=== PATIENT | female | born 1945 | race Caucasian/White ===

== ENCOUNTER 2017-07-05 05:46 | Day surgery (SDC) | payer MEDICARE ==
[2017-07-05] MEDS: IV RINGERS,LACTATED 1000ML 1,000 ML IV ×2 (06:38→12:04)
[2017-07-05 06:41] LABS: POC GLUCOSE 110 mg/dL (70-99)
[2017-07-05] MEDS ORDERED: LIDOCAINE 1% PF 2 ML VIAL. ID (07:00)
[2017-07-05] MEDS ORDERED: ONDANSETRON PF 4 MG/2 ML VIAL. IV (07:00)
[2017-07-05] MEDS ORDERED: PROCHLORPERAZINE 10 MG/2 ML VIAL. IV (07:00)
[2017-07-05] MEDS ORDERED: MORPHINE SULFATE 4 MG/ML DISP.SYRIN. IV (07:00)
[2017-07-05] MEDS ORDERED: fentaNYL PF VIAL 100 MCG/2 ML VIAL IV (07:00)
[2017-07-05] MEDS ORDERED: PHENYLEPHRINE 10 MG/ML VIAL. (07:57)
[2017-07-05] MEDS ORDERED: REMIFENTANIL 2 MG VIAL. IV (07:57)
[2017-07-05] MEDS ORDERED: LIDOCAINE 2% PF Vial for OR 5 ML VIAL. (07:57)
[2017-07-05] MEDS ORDERED: PROPOFOL 50 ML IV ×2 (07:57→10:34)
[2017-07-05] MEDS ORDERED: ONDANSETRON PF 4 MG/2 ML VIAL. (07:57)
[2017-07-05] MEDS ORDERED: DEXAMETHASONE SOD PHOS 20 MG/5 ML VIAL. (07:57)
[2017-07-05] MEDS ORDERED: PROPOFOL 20 ML IV (07:57)
[2017-07-05] MEDS ORDERED: MINERAL OIL/PETROLATUM,WHITE OPHTH OINT 3.5GM TUBE. (07:58)
[2017-07-05] MEDS ORDERED: ROCURONIUM 50 MG/5 ML VIAL. (07:58)
[2017-07-05] MEDS ORDERED: DESFLURANE > 120 MINUTES IH (08:17)
[2017-07-05] MEDS ORDERED: GLYCOPYRROLATE 1 MG/5 ML VIAL. (09:23)
[2017-07-05] MEDS ORDERED: ePHEDrine PF IN SALINE 50 MG/5 ML DISP.SYRIN IV (09:25)
[2017-07-05] MEDS: GELATIN SPONGE SIZE 100. (09:40)
[2017-07-05] MEDS: BUPIVAC MPF-EPI 0.5%-1:200000 30 ML VIAL. INJ (09:40)
[2017-07-05] MEDS: BACITRACIN 50,000 UNIT in IV NORMAL SALINE 1000ML BAG 1,000 ML IRR (09:40)
[2017-07-05] MEDS: KETOROLAC 60 MG/2 ML INJ FOR OR. (09:40)
[2017-07-05] MEDS: THROMBIN TOPICAL 20,000 UNIT SPRAY.SYRN KIT TP (09:40)
[2017-07-05] MEDS ORDERED: LABETALOL 20 MG/4 ML DISP.SYRIN. (10:34)
[2017-07-05] MEDS ORDERED: ESMOLOL 100 MG/10 ML VIAL. IV (10:34)
[2017-07-05] MEDS: fentaNYL PF VIAL 100 MCG/2 ML VIAL IV (12:20)
[2017-07-05] MEDS: HYDROcodone/APAP 5/325MG 1 TAB TABLET PO (12:21)
== END 2017-07-05 13:47 | disposition home or self-care (01) ==
LOC: SURG 05:46
DX: M51.16 Intervertebral disc disorders with radiculopathy, lumbar region (principal); I10 Essential (primary) hypertension; E11.9 Type 2 diabetes mellitus without complications; Z90.710 Acquired absence of both cervix and uterus; Z98.890 Other specified postprocedural states; Z86.73 Personal history of transient ischemic attack (TIA), and cerebral infarction without residual deficits; Z79.4 Long term (current) use of insulin; Z79.899 Other long term (current) drug therapy
CPT/HCPCS: 63030; 72131; 76000; 82962; 97162-GP; 97530-GP; A7015; G8978-CI-GP; G8979-CI-GP; G8980-CI-GP; J0690; J1100; J1885; J2405; J2704; J3010; J3490; J7030; J7120

== ENCOUNTER → 2017-12-17 | Outpatient (CLI) | payer MEDICARE ==
[2017-07-05 12:35] VITALS: BP 140/108
[~2017-12-17] MED LIST: ASPI-630 PO; CHOL100013 PO; CRESTOR10 MG PO; CRESTOR20 MG PO; GADOBUTROL 7.5 MMOL/7.5 ML VIAL IV ONE; HYDR-971 PO; IBUP-1007 PO; LISI-334 PO; LISI10TA2 PO; METF500T16 PO; SERT50TA PO; ZOLP10TA PO
--- NOTE | 2017-12-17 11:29 | KCIC ---
Two-view lumbar spine dated 12/17/2017. Comparison made to MRI dated 12/17/2017. CLINICAL INDICATION: Right-sided radiculopathy post surgery. Findings flexion extension lateral views were obtained. There is very slight anterolisthesis of L4 on L5 that is stable on flexion-extension views. Sagittal alignment is otherwise anatomic. Vertebral body heights are maintained. Mild endplate hypertrophic changes throughout. Mild to moderate arthrosis lower lumbar apophyseal joints. IMPRESSION: 1. Slight anterolisthesis of L4 on L5 with no evidence of instability on the flexion extension views. 2. Mild to moderate lower lumbar spondylosis. Electronically signed by: Curt Saldivar MD (12/17/2017 11:26 AM) [email or web address]
--- NOTE | 2017-12-17 12:27 | KCIC ---
MRI Lumbar Spine without and with contrast History: Post discectomy June 2017, right radiculopathy Technique: Multiplanar, multi sequential pre and postcontrast MR imaging was performed of the lumbar spine. Contrast: 7 cc Gadavist Comparison: July 05, 2017 CT exam, no previous MRI exam available Findings: There is again grade 1 anterior spondylolisthesis L4-5. Lumbar vertebral body stature is maintained. There is mild to moderate degenerative disc disease at L5-S1 and L4-5 as seen previously, mild disc desiccation at more superior levels. Conus terminates at L1. There is no significant marrow edema. There is no nodular enhancement of the conus or cauda equina. T12-L1: This level was not included on the axial images. There is negligible posterior protrusion without spinal stenosis. L1-L2: Spinal canal and neural foramina are adequate. L2-L3: There is likely hemangioma of the right lateral L2 vertebral body. Spinal canal and neural foramina are adequate. L3-L4: There is negligible disc osteophyte complex. Spinal canal and neural foramina are adequate. L4-L5: There is severe right facet degenerative change, to lesser degree on the left. There is mild to moderate buckling of the ligamentum flavum. There is mild partial uncovering of the posterior aspect of the disc due to spondylolisthesis with minimal superimposed shallow protrusion in the right lateral recess. There is also extrusion extending above the intervertebral disc space in the distal aspect of the right neural foramen extending to the proximal extraforaminal region which measures about 0.9 cm AP by 0.9 cm cc by 1.1 cm transverse. There is severe narrowing of the distal right neural foramen with contact of the exiting right L4 nerve root extending to the proximal extraforaminal region. There is mild narrowing of the left neural foramen. There is very minimal narrowing of the far right lateral recess. L5-S1: There is mild to moderate facet degenerative change. There is negligible disc osteophyte complex. Spinal canal is adequate. There is [id number] narrowing of the left neural foramen and moderate narrowing of the right neural foramen, contact of the exiting L5 nerve roots somewhat greater on the left. Impression: 1. There is severe narrowing of the right L4-5 neural foramen greater distally with contact exiting right L4 nerve root in the distal neural foramen and proximal extraforaminal region by extrusion extending above the intervertebral disc space. There is no significant lumbar spinal stenosis. 2. There is grade 1 anterior spondylolisthesis at L4-5 at which there is facet degenerative change. 3. There is [id number] degenerative disc disease at L4-5 and L5-S1. Electronically signed by: Chente Motta MD (12/17/2017 12:24 PM) [email or web address]
== END | disposition home or self-care (01) ==
LOC: KCIC MRI 09:41
PROVIDERS: ATTEND Neurological Surgery
DX: M43.16 Spondylolisthesis, lumbar region (principal); M47.896 Other spondylosis, lumbar region; M51.37 Other intervertebral disc degeneration, lumbosacral region; M51.36 Other intervertebral disc degeneration, lumbar region; M48.061 Spinal stenosis, lumbar region without neurogenic claudication; I10 Essential (primary) hypertension; E11.9 Type 2 diabetes mellitus without complications
CPT/HCPCS: 72100; 72158; 82565; A9585

== ENCOUNTER → 2018-01-11 | Outpatient (CLI) | payer MEDICARE ==
[2017-07-05 12:35] VITALS: BP 140/108
[~2018-01-11] MED LIST changes: +BUPIVACAINE MPF 0.25% 10 ML VIAL. ONE; -GADOBUTROL 7.5 MMOL/7.5 ML VIAL IV ONE; +IOHEXOL 180 MG/ML 10 ML VIAL. ONE; +methylPREDNISolone ACETATE 80 MG/ML VIAL. ONE
--- NOTE | 2018-01-11 23:31 | PAIN ---
DATE OF SERVICE: 01/11/2018 INITIAL CONSULTATION FOR PAIN CLINIC CHIEF COMPLAINT: Low back and right lower extremity pain. HISTORY OF PRESENT ILLNESS: This is a 72-year-old female who presents with history of pain in the low back, right lower extremity since November 21, she stepped off of off of a curb and felt on in her back and her leg. The patient had undergone lumbar decompressive laminectomy in June of this year with very good results. The patient reports she is completely pain free until November 21 when she stepped off a curb on her right foot and had pain immediately in the back and the lower extremities that has become worse on the right side since that time; worse with standing, walking, changing positions, now the pain is radiating across the low back into the posterior gluteus, posterior thigh, posterior calf, posterior heel and into the lateral aspect of the right foot and into the great toe with some burning and tingling. The patient reports it is also radiating, shooting, becoming more constant, burning and cramping, worse at night, worse with walking, awakens her from sleep several times at night. It does affect her ability to walk fairly significantly. The patient reports it also affects her bowel and bladder control with some increased frequency, but not with any incontinence noted. The patient reports it is much worse with standing, weightbearing and change positions from sitting to standing as it is difficult as well. The patient has had physical therapies in the past as well as chiropractic treatments, nothing recently and done well with the physical therapy. She is still doing some stretching and strengthening exercises daily and trying to walk daily, but it is becoming more difficult for her to do this comfortably. The patient takes Tylenol, which she took last night, which does help to decrease the pain by about 20%. The patient did have a recent MRI on 12/17/2017 showing severe right facet degenerative change at L4-L5 with extrusion extending above the intervertebral disk space in the distal aspect of the right neural foramen, extending to the proximal extraforaminal region with severe narrowing of the distal, right neural foramen and contacting the exiting right L4 nerve root, extending to the proximal extraforaminal region. The patient reports a disability rate from 0-10, 10 being the worst and is 8 with family home responsibilities, 10 with recreation and occupation, 6 with social activity, 0 with self care and 0 with life support activities. The patient reports no complete loss of motor function, but significant fatigability with walking and standing with the right lower extremity and again no symptoms on the left. PAST MEDICAL HISTORY: Significant for arthritis, hypertension, type 2 diabetes and osteopenia. PAST SURGICAL HISTORY: Previous surgeries include lumbar decompressive surgery in June of this year and previous hysterectomy. CURRENT MEDICATIONS: Include ibuprofen, Ambien, vitamin D, metformin, daily baby aspirin, lisinopril and Crestor. ALLERGIES: The patient has no known drug allergies. FAMILY HISTORY: Significant for no major medical problems or conditions that she lists. SOCIAL HISTORY: The patient does not smoke, does not drink alcohol recently relocated from [place], [place] to be with her family and now is in [place], [place]. Reports she is retired, stays very active. Does not use any illegal, illicit or recreational drugs. REVIEW OF SYSTEMS: The patient's review of systems is positive for those items mentioned in history of present illness. All systems reviewed and otherwise negative. It is complete, full and well documented on the patient's chart. PHYSICAL EXAMINATION: VITAL SIGNS: The patient's blood pressure is 157/84, pulse 83, respirations are 18 and temperature 98.2 degrees Fahrenheit. Height is 5 feet 3 inches and weight is 169 pounds. GENERAL: The patient is awake, alert, oriented, appropriate and very pleasant demeanor. HEENT: Head shows normocephalic and atraumatic. Extraocular movements are intact and symmetrical. Oral cavity: Mucous membranes are moist and pink. Dentition is intact. NECK: Shows anterior throat supple without palpable lymphadenopathy noted. Swallow reflex is symmetrical. CHEST: Shows normal on inspection. Breath sounds clear to auscultation bilaterally. HEART: Shows S1 and S2 clear. No murmurs auscultated. ABDOMEN: Soft, nontender and nondistended. No palpable organomegaly is noted. No rebound or guarding demonstrated. BACK: Shows spine grossly in the midline. Normal appearing thoracic kyphosis and lumbar lordotic curvature. Lumbar paraspinous musculature shows symmetrical on inspection, on palpation shows some moderate tenderness throughout the upper, middle and lower distribution of the paraspinous muscles but only diffusely. Well-healed surgical scars noted to the right of midline. No tenderness over the sacrum or sacroiliac regions. The patient has good rotational motion of the lumbar spine, both laterally as well as extension and flexion without difficulty. EXTREMITIES: The patient's lower extremities show deep tendon reflexes at 1+ in the patellar and tendo-calcaneus tendons are equal. Motor exam is approximately 4 on a scale of 5 with right dorsiflexion and extension, 5/5 on the left. Peripheral pulses are 1+ posterior tibial. No peripheral edema is noted. The patient's straight leg raising noted to be positive on the right about 35 degrees, decreased with knee flexion but not completely relieved. Left side is negative. Gaenslen's and J Luis's maneuvers are negative bilaterally. The patient is able to stand, stand on her toes without significant difficulty or loss of balance, walks with a normal appearing gait for short distances now. The patient does not appear to favor the right lower extremity, not using any assistive device to ambulate. The patient's skin shows warm and dry, good turgor. No edema. No sores, rashes or bruising. IMPRESSION: 1. This is a 72-year-old female with approximate 2-month history of increasing pain, low back and right lower extremity in a radicular fashion. 2. MRI scan of the lumbar spine as noted. 3. Arthritis. 4. Hypertension. 5. Type 2 diabetes. PLAN: Options were discussed with the patient including conservative medical management, physical therapy and interventional techniques. She would like to pursue interventional techniques. We discussed a right L4-L5 transforaminal injection using description as well as anatomical models to describe the procedure. Risks were then discussed including, but not limited to bleeding, infection, possibility of epidural hematoma and subsequent neurological compromise, dural puncture, headaches, spinal cord and/or nerve damage, side effects of steroid medication, potential injection of the vertebral artery at that level and permanent ischemic damage as well as poor results regarding pain control. The patient understands and wished to proceed. The patient will return to the clinic in approximately 2 weeks for followup, was counseled as to return appointment, activity level and side effects to be aware of. DIAGNOSES: Lumbar radiculopathy with lumbar degenerative disk disease and post-lumbar laminectomy syndrome. PROCEDURE: Right L4-L5 transforaminal injection using C-arm fluoroscopic guidance under sterile prep and drape using local anesthetic. MEDICATION INJECTED: A total of 2 mL of 0.25% bupivacaine, 80 mg Depo-Medrol and 1.5 mL of Isovue for contrast. CONDITION AT DISCHARGE: Stable. The patient tolerated the procedure well and had no complications. DORIS VANG MD DR: DAVID/nae JOB#: [id number] / [id number] Jenny Lewis
== END | disposition home or self-care (01) ==
LOC: PNCL 09:49
PROVIDERS: ATTEND Anesthesiology
DX: M51.16 Intervertebral disc disorders with radiculopathy, lumbar region (principal); M96.1 Postlaminectomy syndrome, not elsewhere classified; I10 Essential (primary) hypertension; E11.9 Type 2 diabetes mellitus without complications; M19.90 Unspecified osteoarthritis, unspecified site; M85.80 Other specified disorders of bone density and structure, unspecified site; Z90.710 Acquired absence of both cervix and uterus; Z98.890 Other specified postprocedural states; Z79.82 Long term (current) use of aspirin; Z79.899 Other long term (current) drug therapy; Z79.84 Long term (current) use of oral hypoglycemic drugs
CPT/HCPCS: 64483; J1040; J3490; Q9965

== ENCOUNTER → 2018-01-27 | Outpatient (CLI) | payer MEDICARE ==
[2017-07-05 12:35] VITALS: BP 140/108
[~2018-01-27] MED LIST changes: -BUPIVACAINE MPF 0.25% 10 ML VIAL. ONE; +HYDR-3164 PO; -HYDR-971 PO; -IOHEXOL 180 MG/ML 10 ML VIAL. ONE; -methylPREDNISolone ACETATE 80 MG/ML VIAL. ONE
--- NOTE | 2018-01-27 13:10 | PAIN ---
DATE OF SERVICE: 01/27/2018 PROGRESS NOTE FOR PAIN CLINIC DIAGNOSES: Lumbar radiculopathy with lumbar degenerative disk disease and lumbar post-laminectomy syndrome. HISTORY OF PRESENT ILLNESS: The patient is a 72-year-old who returns for followup status post transforaminal L4-L5 right-sided epidural steroid injection x 1. The patient reports about 50% improvement, doing much better. The patient reports she has been increasing her activity with greater ease and comfort, walking greater distances, doing household activities. She said that over , she was on her feet quite a bit and she noticed the pain more, but this subsided after about a day or so. The patient reports still significant pain in the low back, right leg, right anterior thigh, right medial thigh, medial lower leg and the right hip, aching, burning, becoming constant only with extended activity or standing. The patient is much better with sitting or lying down. It does not awaken her from sleep at night. She reports pain is 7 on a scale of 10 at its worst, 5 on average, 5 at its least and is a 5 today. The patient reports she is doing fairly well, would like to wait on any further injections at this time as she is feeling much better. The patient reports no new side effects, no new motor or sensory deficits or other complaints. PHYSICAL EXAMINATION: VITAL SIGNS: The patient's blood pressure 140/77, pulse 73, respirations 18, temperature 98.1 degrees Fahrenheit, height is 5 feet 3 inches, weight is 168 pounds. GENERAL: The patient is awake, alert, oriented, appropriate and very pleasant demeanor. HEENT: Head shows normocephalic, atraumatic. Extraocular movements intact and symmetrical. Oral cavity: Mucous membranes are moist and pink. Dentition is intact. NECK: Shows anterior throat supple without palpable lymphadenopathy noted. Swallow reflex symmetrical. CHEST: Shows normal with inspection. Breath sounds clear to auscultation bilaterally. HEART: Shows S1, S2 clear. No murmurs auscultated. ABDOMEN: Soft, nontender, nondistended. No palpable organomegaly is noted. No rebound or guarding demonstrated. BACK: The patient's back shows spine grossly in the midline, slight flattening of lumbar lordotic curvature. Lumbar paraspinous muscle shows symmetrical on inspection, some moderate tenderness only with palpation, but only diffusely and only moderately without radiation, without trigger points. No difficulty with rotational motion. EXTREMITIES: The patient's lower extremities show deep tendon reflexes 1+ in the patellar and tendo-calcaneus tendons. Motor exam is approximately 4 on a scale of 5 on the right and 5/5 on the left with dorsiflexion, extension, quadriceps and hamstring flexion. Peripheral pulses are 1+ posterior tibia. No peripheral edema is noted bilaterally. PLAN: Options were discussed with the patient. The patient's old chart was reviewed as her current medication regimen updated. Current review of systems updated today as well. We will hold on any further injections at this time. The patient would like to follow up in a few weeks to see if the pain returns. We will make these arrangements for her. The patient was encouraged to increase her activity as tolerated and maintain her stretching and strengthening exercises as well as walking as comfortably as possible and will follow up in approximately 2 weeks for reevaluation. DORIS VANG MD DR: DAVID/nae JOB#: [id number] / [id number]
== END | disposition home or self-care (01) ==
LOC: PNCL 08:52
PROVIDERS: ATTEND Anesthesiology
DX: M51.16 Intervertebral disc disorders with radiculopathy, lumbar region (principal); M96.1 Postlaminectomy syndrome, not elsewhere classified
CPT/HCPCS: G0463